=== PATIENT | male | born 1985 | race Caucasian/White ===

== ENCOUNTER 2020-12-27 09:29 | Emergency (ER) | payer BC, SELFPAY ==
--- NOTE | 2020-12-27 09:32 | ED.GENADULT ---
HPI - General Adult General Chief complaint: Eye Problems Stated complaint: eye prob Time Seen by Provider: 12/27/20 09:32 Source: patient Mode of arrival: ambulatory Limitations: no limitations History of Present Illness HPI narrative: 35-year-old male patient presents to the [facility] with complaints of left eye pain and redness. Patient states he was at his parents house yesterday which do have some large Huskies. Patient states he felt at one point in time the apnea yesterday that p16 was in his eye and states it got very itchy. Patient states when he got home later that evening the pain had increased and this morning woke up with some left eye redness, swelling and increase in pain. Patient states his left eye is very sensitive to the light and thinks it might be blurry. Patient does wear glasses. Patient denies any injury to the eye that he is aware of. Related Data Allergies Allergy/AdvReac Type Severity Reaction Status Date / Time No Known Allergies Allergy Verified 12/27/20 10:03 Review of Systems Review of Systems: Narrative: CONSTITUTIONAL: Denies fever, chills, or sweats. EYES: Positive left eye visual changes, redness, and yellow discharge. ENT: Denies rhinorrhea, congestion, sore throat, or otalgia. CARDIOVASCULAR: Denies chest pain, palpitations, or edema. RESPIRATORY: Denies cough or dyspnea. GASTROINTESTINAL: Denies abdominal pain, nausea, vomiting, or diarrhea. GENITOURINARY: Denies dysuria or hematuria. SKIN: Denies rash or itching. MUSCULOSKELETAL: Denies back pain, joint pain, or myalgia. NEUROLOGIC: Denies headache, numbness, or weakness. PSYCHIATRIC: Denies anxiety or depression. [facility] Past Medical History Medical History (Updated 12/27/20 @ 10:15 by ESTEFANIA Gandhi) Fracture of thumb, left, closed Family History Family History Father Family history of gastrointestinal disorder Social History Social History Smoking status: Never smoker Alcohol intake: current Comments At the time of my signature I agree with nursing past medical history, surgical, social, and family history. There is no relevant family history pertinent to the presenting complaint. Exam Narrative: Exam Narrative: GENERAL: Well-appearing, well-nourished, and in no acute distress. HEAD: Normocephalic, atraumatic. EYES: PERRLA and EOM intact without limitation or complaint of pain, no periorbital soft tissue swelling , patient does have slight swelling and erythema noted to the left upper lid. No warmth or tenderness noted, no obvious deformity. No crusting or swelling.patient does have a little bit of yellow discharge noted to the eye. Positive photophobia. No nystagmus No FB or lesion on lid eversion. Corneas appear like there might be something at 7:00 area, no obvious FB or hyphens/hypopyon. Erythema injection to sclera. Lids and lashes clear. When the left eye was dyed with fluorescein it does appear that he has a corneal abrasion to the 7:00 area. ENT: Nares clear, no rhinorrhea or epistaxis. Mucous membranes moist. NECK: Supple. No lymphadenopathy CHEST: Clear to auscultation. No respiratory distress. HEART: Regular rate and rhythm. No murmur heard. Normal peripheral pulses. ABDOMEN: Soft, nontender, nondistended, normal active bowel sounds. EXTREMITIES: Normal range of motion. No edema. SKIN: Warm, dry, no rash. NEURO: No focal deficits. Alert and oriented x3. Course Vital Signs Vital signs: Vital Signs Temperature 36.2 C L 12/27/20 09:54 Pulse Rate 84 12/27/20 09:54 Respiratory Rate 16 12/27/20 09:54 Blood Pressure 157/100 H 12/27/20 09:54 Pulse Oximetry 98 12/27/20 09:54 Temperature 36.2 C L 12/27/20 09:54 Pulse Rate 84 12/27/20 09:54 Respiratory Rate 16 12/27/20 09:54 Blood Pressure 157/100 H 12/27/20 09:54 Pulse Oximetry 98 12/27/20 09:54 Vital signs revie
[2020-12-27 09:54] VITALS: BP 157/100; PULSE 84; RESP 16; TEMP 36.2; O2SAT 98
== END 2020-12-27 10:20 | disposition home or self-care (01) ==
PROVIDERS: Emergency Provider Nurse Practitioner Family
DX: S05.02XA Injury of conjunctiva and corneal abrasion without foreign body, left eye, initial encounter (principal); X58.XXXA Exposure to other specified factors, initial encounter
CPT/HCPCS: 99213; A9270; G0463